=== PATIENT | female | born 1955 | race Caucasian/White ===

== ENCOUNTER 2016-12-09 14:48 | Inpatient (IN) | payer OTHER ==
[~2016-12-09] VITALS: Ht 152.4 cm; Wt 65.0 kg
[2016-12-10 10:16] VITALS: Ht 152.4 cm; Wt 65.0 kg
[2016-12-11] VITALS (20 sets, daily range): BP systolic 124–142; BP diastolic 50–78; PULSE 66–99; RESP 12–25
[2016-12-11] MEDS ORDERED: CEFAZOLIN 2 GM/50 ML (PMX) 50 ML IVPB SCH (06:00)
[2016-12-11] MEDS ORDERED: D5-NS + KCL 20 MEQ 1,000 ML IV SCH (06:00)
[2016-12-11] MEDS ORDERED: Metronidazole 500 MG in NS 100 ML IVPB SCH (06:00)
[2016-12-11] MEDS ORDERED: ROCURONIUM 50 MG INJ ONE ×2 (07:00→10:41)
[2016-12-11] MEDS ORDERED: EPHEDrine SULFATE 50 MG/5 ML SYG ONE (07:00)
[2016-12-11] MEDS ORDERED: METHYLENE BLUE 1% 10 ML INJ ONE (08:59)
[2016-12-11] MEDS ORDERED: VASOPRESSIN 20 UNITS INJ ONE (08:59)
[2016-12-11] MEDS ORDERED: THROMBIN 5000 UNIT VIAL ONE (08:59)
--- NOTE | 2016-12-11 09:57 | HPN ---
Date/Time of Note Date/Time of Note DATE: 12/11/16 TIME: 09:57 Interval H&P Admission Note Pt. seen H&P reviewed: No system changes MARTA BALDWIN MD Dec 11, 2016 09:57
--- NOTE | 2016-12-11 10:02 | HP ---
Date/Time of Note Date/Time of Note DATE: 12/11/16 TIME: 10:01 Assessment/Plan VTE Prophylaxis VTE Prophylaxis Intervention: SCD's Lines/Catheters [facility] Peripheral IV HPI/ROS Admit Date/Time Admit Date/Time Dec 11, 2016 at 07:44 Hx of Present Illness Juan Luis Baldwin M.D. [facility] History and Physical Examination Magaly Moreno Dec 08, 2016 Age:61 :1955 Physicians: Actuarial Science Professor Safety And Security Manager Oncologist Referring MD: History of the Present Illness: This is a 61 female with a grade 1 endometrial cancer recently diagnosed by d/c endometrial biopsy. Medical history/ROS: all other systems unremarkable. G 5 P 0 Ab 0 x 5 Surgical History: TL Medications: Flu yes, 07/2016, Pneumococcal no, declined Colonoscopy: never Allergies: 10/27/16 No Known Drug Intolerances Family History: Noncontributory Social History: Noncontributory Review of Systems: Negative except for above noted Physical Examination Vitals (12/08/2016): Weight 145.5, Height 58.5, BP 130/80, BMI 30.3. General: Alert. HEENT: Pupils are equal, round, reactive to light and accommodation. Neck: Supple with no masses of lymphadenopathy. Breast: Deferred due to recent examination and responsibility of primary care physician. Chest: Clear to auscultation and percussion with no rales, ronchi, or wheeze. Heart: Normal rhythm with no murmur. Abdominal exam: nontender, nondistended, no masses, no ascites. location: N/A Pelvic exam: Uterus enlarged and globular, no masses or cul-de-sac nodularity noted Rectal: confirmatory with pelvic exam. Neurological: Grossly intact Ext- NT no edema Assessment: endomtrial cancer stage to be determined Plan: TLH/BSO LND possible lapartotomy. All risks and benefits of this procedure have been discussed in detail with the patient, as well as alternative treatment strategies and their implications. The patient is aware that there is some possibility of a blood transfusion and its associated risks and benefits. She wishes to proceed and gives her informed consent. Juan Luis Baldwin M.D. Exam/Review of Systems Vital Signs Vitals Vital Signs Date Time Temp Pulse Resp B/P Pulse Ox O2 Delivery O2 Flow Rate FiO2 12/11/16 09:31 98.0 78 20 142/64 98 Medications Medications Current Medications Potassium Chloride/Dextrose/ Sod Cl 1,000 ml @ 100 mls/hr Q10H IV ; Start 12/11 at 06:00 Metronidazole 100 ml @ 100 mls/hr OC IVPB ; Start 12/11/16 at 06:00; Stop 12/11 at 16:00 Cefazolin Sodium/ Dextrose (Ancef 2 Gm/50 ml (Pmx)) 50 ml @ 100 mls/hr OC IVPB ; Start 12/11/16 at 06:00; Stop 12/11/16 at 16:00 JUAN LUIS BALDWIN MD Dec 11, 2016 10:02
[2016-12-11] MEDS ORDERED: FENTAnyl 50 MCG/ML VIAL ONE (10:21)
[2016-12-11] MEDS ORDERED: SUCCINYLCHOLINE CHLORIDE 100 MG/5 ML SYG IV ONE (10:41)
[2016-12-11] MEDS ORDERED: NEOSTIGMINE 3 MG/3 ML SYRINGE ONE (10:41)
[2016-12-11] MEDS ORDERED: PROPOFOL 20 ML ONE (10:41)
[2016-12-11] MEDS ORDERED: LIDOCAINE 2% (SDV) 5 ML INJ ONE (10:41)
[2016-12-11] MEDS ORDERED: GLYCOPYRROLATE 0.4 MG INJ ONE (10:41)
[2016-12-11] MEDS ORDERED: CEFAZOLIN 1 GM INJ ONE (10:42)
[2016-12-11] MEDS ORDERED: metroNIDAZOLE 500 MG/NS (PMX) 100 ML IVPB ONE (10:42)
[2016-12-11] MEDS ORDERED: ONDANSETRON 4 MG INJ IV PRN ×2 (11:00→20:30)
[2016-12-11] MEDS ORDERED: METOCLOPRAMIDE 10 MG INJ IV PRN (11:00)
[2016-12-11] MEDS ORDERED: MEPERIDINE 25 MG INJ IV PRN (11:00)
[2016-12-11] MEDS ORDERED: HYDROmorphONE (0.2 MG/ML) 10ML SYG IV PRN ×3 (11:00)
[2016-12-11] MEDS ORDERED: FENTAnyl 50 MCG/ML VIAL IV PRN ×2 (11:00)
[2016-12-11] MEDS ORDERED: DIPHENHYDRAMINE 50 MG INJ IV PRN (11:00)
[2016-12-11] MEDS ORDERED: LIDOCAINE 2%/EPI 30 ML INJ ONE (11:01)
[2016-12-11] MEDS ORDERED: PHENYLephrine (100 MCG/ML) 5ML SYG ONE (11:23)
[2016-12-11] MEDS ORDERED: CEFAZOLIN 3 GM in SOD CHLORIDE 0.9% 100 ML IVPB SCH (11:30)
[2016-12-11] MEDS ORDERED: morphine SULFATE/PF (10 MG/10 ML) INJ ONE (14:15)
[2016-12-11] MEDS: POTASSIUM CHLORIDE 20 MEQ in LACTATED RINGER'S 1,000 ML IV SCH (15:34)
[2016-12-11] MEDS ORDERED: traMADol 50 MG TAB PO PRN (16:30)
[2016-12-11] MEDS ORDERED: morphine 2 MG INJ IV PRN (16:30)
--- NOTE | 2016-12-11 17:47 | HP ---
DATE OF ADMISSION: 12/11/2016 CHIEF COMPLAINT AND HISTORY OF PRESENT ILLNESS: The patient is a 61-year-old female with history of endometrial cancer diagnosed by endometrial biopsy. The patient was seen by Dr. Yeager as an out patient and underwent total laparoscopic hysterectomy and bilateral salpingo-oophorectomy and lymph node dissection. The patient is being admitted for further care. The patient denies any chest pain . Patient does have some postoperative pain, no reported recent fever or chills. No known history of diabetes, hypertension, coronary artery disease or CVA. The patient did not have any recent infe ctions or antibiotic use. PAST SURGICAL HISTORY: Patient is status post tubal ligation. SOCIAL HISTORY: No smoking, no alcohol. FAMILY HISTORY: The patient's sister has breast cancer and daughter had vaginal cancer, details not known. MEDICATIONS PRIOR TO ADMISSION: None. PHYSICAL EXAMINATION: GENERAL: The patient is conscious, awake, alert. VITAL SIGNS: Temperature 98.3, pulse 88, respirations 17, blood pressure 130/63, O2 saturation 100% on room air. HEENT: Conjunctivae and lids are normal. Oropharynx clear. NECK: Supple. No mass or thyromegaly. LUNGS: Clear to auscultation. CARDIOVASCULAR: S1, S2 normal. No murmur. ABDOMEN: The patient is status post surgery. EXTREMITIES: No edema. Pedal pulses palpable. SKIN: Without acute rash. NEUROLOGIC: The patient is awake, alert with no gross focal deficit. Detailed neurological examina tion was deferred due to recent surgery. LABORATORY DATA: Preop chest x-ray was unremarkable. EKG showed normal sinus rhythm with no acute ST changes. Preop labs reveal normal coagulation profile. WBC 6.5, hemoglobin 14.5. Sodium 141, p otassium 4.6, BUN 17, creatinine 0.06, glucose 109. IMPRESSION: Endometrial cancer, status post total laparoscopic hysterectomy and bilateral salpingo- oophorectomy and lymph node dissection. PLAN: Patient admitted on medical floor. Patient will be started on clear liquid diet and will be given IV cefazolin and Flagyl as per protocol. Patient will be given IV fluid, IV Dilaudid for pain control and sequential compression devices for deep venous thrombosis prophylaxis. The patient is currently in the PACU and after transferring to the floor, she will be on Ultram p.o. and IV morphin e for pain control. Plan of care was discussed with the patient's family. We will continue to foll ow her from a medical standpoint. Dictated By: JOYCE KHAN/GUERLINE Conf#: [id number] DID#: [id number]
[2016-12-11] MEDS: CEFAZOLIN 3 GM in SOD CHLORIDE 0.9% 100 ML IVPB SCH (19:53)
--- NOTE | 2016-12-11 20:41 | OPR ---
Date/Time of Note Date/Time of Note DATE: 12/11/16 TIME: 20:40 Operative Report Free Text/Dictation OPERATIVE REPORT [facility] Name: Magaly Moreno Medical Date: 12/11/16 Preoperative Diagnosis: Endometrial cancer grade 1 Postoperative Diagnosis: Endometrial cancer with final pathology pending Procedures: 1- Total laparoscopic hysterectomy with bilateral salpingoophorectomy 2- Bilateral ureteral dissection with repositioning 3- Laparoscopic pelvic and aortic lymph node dissection 4- Retroperitoneal uterine artery ligation adjacent to hypogastric artery Surgeon: Dr. Yeager Hide Paster: Dr. Lindsey Izaguirre DYNAMICS AX SOLUTION ARCHITECT Anaesthesia: General with regional Indications for Procedure: This 61 year old patient had a grade 1 endometrial cancer without evidence of metastatic disease preoperatively and after discussions of options with risks and benefits it was determined that a laparoscopic hysterectomy with bilateral salpingoophorectomy and pelvic/aortic lymph node dissection would be completed for the purposes of treatment and possibly planning additional adjuvant therapy. The pelvic and LND was performed in lieu of final grading not being equivalent to preoperative D&C grade 18-25% of the time and frozen section not being more that 80% reliable in determining grade and depth of invasion; therefore complete staging is performed to determine postoperative management unless there is a significant contraindication. Intraoperative Findings and Summary of Procedure: After placing the Trocars and exploration we noted an enlarged globular uterus with some suggestion of fibroids with significant adhesions of the adnexia to the sidewalls. Name: Magaly Carreno The TLH/BSO was then performed without incident but required a ureteral dissection due to anatomic issues of the adnexia adherent to the sidewalls and uterine enlargement due to probable old fibroids vs invasion with retroperitoneal uterine artery ligation adjacent to hypogastric artery for required hemostasis, with the laparoscopic LND being subsequently performed with a finding of grossly negative nodes pathology pending. The patient will stay a minimum of one night to observe for recovery of from anesthesia and confirm stable hemoglobin and hematocrit with the necessity of confirmation of some GI recovery and probably need an addition night as well. Findings and Procedure: After being prepped and draped in the usual manner an EEA sizer and pneumo- occluder was inserted vaginally. A 5-millimeter trocar was then placed cephlad to the umbilicus without incident. Subsequently, we insufflated and placed two 12- millimeter trocars laterally and lysed extensive anterior abdominal omental adhesions that were lysed with the Omni and Thunderbeat after which it was possible to insert a 12-millimeter trocar suprapubically, as well as an additional 12-mm trocar well cephlad to the umbilicus. At this time multiple pelvic adhesions were lysed with sharp dissection and the Omni if not adjacent to serosa. Subsequently we explored and noted an enlarged irregular uterus with hypervascularity with adnexia adherent to the sidewalls due to apparent inflammation and old scar tissue. Initially the right round ligament was cauterized and transected with the Gyrus bipolar cutting forceps and the retroperitoneal space further opened parallel to the IP ligament an laterally with the same devise. The right ureter was identified and due to the aforementioned distortion from adherent adnexia was dissected laterally with the Omni and the endo-dissector. After lateralizing the ureter the uterine artery was identified and clipped adjacent to the hypogastric artery due to the uterine enlargement with anatomy precluding access to the lower uterine segment vessels with the ureter visualized and hypervascularity. Hence, a space was developed the broad ligament and the right IP ligament was cauterized and transected Name: Magaly [facility] with a Thunderbeat after which the uterus was retracted medially and the bladder flap was partly developed with the Gyrus bipolar cutting forceps and the Omni. We then used a 10-mm ratcheted endo-grasper placed through the 12-mm suprapubic trocar to manipulate the uterus and with the EEA sizer uterus was retracted and left round ligament was cauterized and transected with the Thunderbeat and the retroperitoneal space further opened parallel to the IP ligament an laterally with the same devise and Omni. The left ureter was identified and due to the aforementioned distortion was dissected laterally with the Omni and the endo-dissector as done contralaterally. After lateralizing the ureter the uterine artery was identified and clipped adjacent to the hypogastric artery due to the uterine enlargement with anatomy precluding access to the lower uterine segment vessels lateral to the ureter and hypervascularity. Hence, a space was developed in the broad ligament and the left IP ligament was cauterized and transected with a Thunderbeat after which the uterus was retracted medially, allowing development or the bladder flap uneventfully with a Thunderbeat and blunt dissection. Subsequently, the right uterine artery was transected with a Thunderbeat perpendicular to the distal lower uterine segment and the Cardinal ligament and utero-sacral ligament were both transected with an Omni and Thunderbeat parallel to the lower uterine segment and cervix. An identical series of steps were taken on the left side. The anterior and posterior colpotomies were accomplished with a Thunderbeat anteriorly and posteriorly, and continued around the sides as the specimen was removed through the vagina uneventfully. The vagina was closed with interrupted 0 Vicryl suture and continuous 2-0 v-lock suture. At this time the pelvic and aortic LND were completed after confirming hemostasis. Initially a fan retractor was used for exposure and secured to the Selvin arm and all lymph node tissue adjacent to the right external iliac artery and vein, hypogastric artery and vein, as well as obturator fossa were removed with sharp and blunt dissection, using the Thunderbeat or Gyrus bipolar Omni for hemostasis and lymphostasis. The frank tissue was grasped and subsequently placed under tractions with the Omni and the Thunderbeat then being used for the hemostasis and Name: [facility] lymphostasis in the process of removal. The dissection was continued to include frank tissue adjacent to the common iliac vessels. The obturator nerve was identified and all adjacent frank tissue removed with blunt dissection, with the Thunderbeat or Gyrus bipolar Omni used for lymphostasis and hemostasis as needed. The fan retractors were adjusted in that a suprapubically placed fan retracted the broad ligament and ureter with ileum while the right lateral trocar was used for a fan to retract the cecum and ascending colon allowing any frank tissue adjacent to the vena cava, as well as aorto-caval nodes to be removed using identical technique. [employer] Farm[employer] vessels were addressed with the Thunderbeat or Gyrus bipolar Omni. At this time we placed the fan retractors for contralateral exposure. Subsequently, all lymph node tissue adjacent to the left external iliac artery and vein, hypogastric artery and vein, as well as obturator fossa were removed with sharp and blunt dissection, the Thunderbeat or Gyrus bipolar Omni for hemostasis and lymphostasis, with a technique identical to the right side. The dissection was continued to include frank tissue adjacent to the common iliac vessels. Subsequently, the fan retractors were adjusted and any frank tissue adjacent to the aorta were dissected using similar technique. After irrigating and assuring hemostasis the 12 millimeter trocars were removed and the fascia was closed with 0-vicryl using an endo- close devise. The gas was removed and the skin of all sites then closed with subcutaneous 3-0 Vicryl suture for the 12-millimeter trocar sites and subcuticular 4-0 Monocryl suture. The EBL was 100cc and the patient tolerated the procedure well and left the OR in good condition. Marta Yeager M.D. MARTA YEAGER MD Dec 11, 2016 20:41
[2016-12-12] MEDS: POTASSIUM CHLORIDE 20 MEQ in LACTATED RINGER'S 1,000 ML IV SCH ×3 (00:47→15:28)
[2016-12-12] MEDS: CEFAZOLIN 3 GM in SOD CHLORIDE 0.9% 100 ML IVPB SCH ×2 (04:16→13:27)
[2016-12-12 06:01] LABS: ALBUMIN 3.3 g/dl (3.3-4.9); POTASSIUM 3.6 mmol/L (3.5-5.1)
[2016-12-12 06:03] LABS: CREATININE 0.6 mg/dl (0.44-1.00)
[2016-12-12 06:04] LABS: BILIRUBIN,INDIRECT 0.4 mg/dl (0-1.1); BILIRUBIN,TOTAL 0.4 mg/dl (0.2-1.3); TOTAL PROTEIN 6.6 g/dl (6.1-8.1)
[2016-12-12 06:05] LABS: CALCIUM 8.6 mg/dl (8.4-10.2)
[2016-12-12 06:06] LABS: INR 1.1; PROTIME 14.2 Sec (12.2-14.2); PT RATIO 1.1
[2016-12-12 07:29] VITALS: BP 111/53; RESP 16
--- NOTE | 2016-12-12 08:30 | CONS ---
Date/Time of Note Date/Time of Note DATE: 12/12/16 TIME: 08:27 Consultation Date/Type/Reason Admit Date/Time Dec 11, 2016 at 07:44 Initial Consult Date 12/12/16 Type of Consultation: Anesthesiology Reason for Consultation Epidural follow up 24 HR Interval Summary Free Text/Dictation Pt seen and examined at bedside POD#1 s/p Lap TAHBSO. Pt received an epidural for post op pain and duramorph injection. She states her pain is currently minimal and adequately controlled. No N/V/D/C/numbness. Will continue to follow. Constitutional: improved, no complaints Exam/Review of Systems Vital Signs Vitals Vital Signs Date Time Temp Pulse Resp B/P Pulse Ox O2 Delivery O2 Flow Rate FiO2 12/12/16 07:29 98.8 64 16 111/53 93 12/11/16 19:33 Room Air Intake and Output 12/11/16 12/11/16 12/12/16 14:59 22:59 06:59 Intake Total 2800 ml 1830 ml Output Total 225 ml 850 ml 600 ml Balance -225 ml 1950 ml 1230 ml Results Result Diagram: 12/12/16 0516 Results 24 hrs Laboratory Tests Test 12/12/16 05:16 Prothrombin Time 14.2 Prothrombin Time Ratio 1.1 INR International Normalized Ratio 1.10 Sodium Level 140 Potassium Level 3.6 Chloride Level 103 Carbon Dioxide Level 27 Anion Gap 14 Blood Urea Nitrogen 15 Creatinine 0.60 Glucose Level 108 Calcium Level 8.6 Total Bilirubin 0.4 Direct Bilirubin 0.00 Indirect Bilirubin 0.4 Aspartate Amino Transf (AST/SGOT) 20 Alanine Aminotransferase (ALT/SGPT) 26 Alkaline Phosphatase 79 Total Protein 6.6 Albumin 3.3 Globulin 3.30 H Albumin/Globulin Ratio 1.00 Medications Medications Current Medications Potassium Chloride 20 meq/ Lactated Ringer's 1,010 ml @ 100 mls/hr Q10H6M IV Last administered on 12/12/16 00:47; Admin Dose 100 MLS/HR; Start 12/11/16 at 12:30 Cefazolin Sodium/ Sodium Chloride (Ancef/NS) 100 ml @ 100 mls/hr Q8H IVPB Last administered on 12/12/16 04:16; Admin Dose 100 MLS/HR; Start 12/11/16 at 19:30; Stop 12/12/16 at 12:29 Tramadol HCl (Ultram) 50 mg Q6H PRN PO PAIN LEVEL 1-5; Start 12/11/16 at 16:30 Morphine Sulfate (morphine) 2 mg Q3H PRN IV PAIN LEVEL 6-10; Start 12/11/16 at 16:30 Ondansetron HCl (Zofran Inj) 4 mg Q6H PRN IV NAUSEA AND/OR VOMITING; Start at 20:30 MEGHANA PRESCOTT Dec 12, 2016 08:30
[2016-12-12 10:16] LABS: ADD SCAN DIFF NO
[2016-12-12 10:21] LABS: BASOPHILS % 0.2 % (0.0-2.0); EOSINOPHILS % 0.1 % (0.0-7.0); HEMOGLOBIN 11.8 g/dl (12.0-16.0); LYMPHOCYTES # 2.8 10^3/ul (0.8-2.9); LYMPHOCYTES % 21.8 % (15.0-51.0); MEAN CORPUSCULAR HEMOGLOBIN 32.2 pg (29.0-33.0); MEAN CORPUSCULAR HGB CONC 33.7 g/dl (32.0-37.0); MEAN CORPUSCULAR VOLUME 95.4 fl (82.0-101.0); MEAN PLATELET VOLUME 11.3 fl (7.4-10.4); MONOCYTE # 0.6 10^3/ul (0.3-0.9); MONOCYTES % 4.8 % (0.0-11.0); NEUTROPHIL # 9.5 10^3/ul (1.6-7.5); NEUTROPHILS % 72.9 % (39.0-77.0); PLATELET COUNT 198 10^3/UL (140-415); RED BLOOD COUNT 3.67 10^6/ul (4.20-5.40); WHITE BLOOD COUNT 13.1 10^3/ul (4.8-10.8)
--- NOTE | 2016-12-12 13:35 | PN ---
Date/Time of Note Date/Time of Note DATE: 12/12/16 TIME: 13:33 Assessment/Plan VTE Prophylaxis VTE Prophylaxis Intervention: SCD's Lines/Catheters IV Catheter Type (from Nrs): Saline Lock Urinary Cath still in place: Yes Reason Cath still needed: urinary retention Assessment/Plan Chief Complaint/Hosp Course endometrial cancer Problems: Assessment/Plan A- doing well P- advance diet, d/c Vaughn and anticipate d/c tomorrow Subjective 24 Hr Interval Summary Free Text/Dictation + flatus and iasi current diet. OOB Exam/Review of Systems Vital Signs Vitals Vital Signs Date Time Temp Pulse Resp B/P Pulse Ox O2 Delivery O2 Flow Rate FiO2 12/12/16 07:29 98.8 64 16 111/53 93 12/11/16 19:33 Room Air Intake and Output 12/11/16 12/11/16 12/12/16 15:00 23:00 07:00 Intake Total 2800 ml 1830 ml Output Total 225 ml 850 ml 600 ml Balance -225 ml 1950 ml 1230 ml Exam Respiratory: clear to auscultation, normal air movement Cardiovascular: nl pulses, regular rate and rhythm Gastrointestinal: non-tender, soft Extremities: normal pulses Results Result Diagram: 12/12/16 0516 12/12/16 0516 Results 24 hrs Laboratory Tests Test 12/12/16 05:16 White Blood Count 13.1 H Red Blood Count 3.67 L Hemoglobin 11.8 L Hematocrit 35.0 L Mean Corpuscular Volume 95.4 Mean Corpuscular Hemoglobin 32.2 Mean Corpuscular Hemoglobin Concent 33.7 Red Cell Distribution Width 13.0 Platelet Count 198 Mean Platelet Volume 11.3 H Neutrophils % 72.9 Lymphocytes % 21.8 Monocytes % 4.8 Eosinophils % 0.1 Basophils % 0.2 Nucleated Red Blood Cells % 0.0 Neutrophils # 9.5 H Lymphocytes # 2.8 Monocytes # 0.6 Eosinophils # 0.0 Basophils # 0.0 Nucleated Red Blood Cells # 0.0 Prothrombin Time 14.2 Prothrombin Time Ratio 1.1 INR International Normalized Ratio 1.10 Sodium Level 140 Potassium Level 3.6 Chloride Level 103 Carbon Dioxide Level 27 Anion Gap 14 Blood Urea Nitrogen 15 Creatinine 0.60 Glucose Level 108 Calcium Level 8.6 Total Bilirubin 0.4 Direct Bilirubin 0.00 Indirect Bilirubin 0.4 Aspartate Amino Transf (AST/SGOT) 20 Alanine Aminotransferase (ALT/SGPT) 26 Alkaline Phosphatase 79 Total Protein 6.6 Albumin 3.3 Globulin 3.30 H Albumin/Globulin Ratio 1.00 Medications Medications Current Medications Potassium Chloride/Lactated Ringer's (KCl/Lr) 1,010 ml @ 50 mls/hr [id number] IV Last administered on 12/12/16 00:47; Admin Dose 100 MLS/HR; Start 12/11/16 at 12:30 Tramadol HCl (Ultram) 50 mg Q6H PRN PO PAIN LEVEL 1-5 Last administered on 12/12 10:49; Admin Dose 50 MG; Start 12/11/16 at 16:30 Ondansetron HCl (Zofran Inj) 4 mg Q6H PRN IV NAUSEA AND/OR VOMITING; Start at 20:30 AMRTA BALDWIN MD Dec 12, 2016 13:35
[2016-12-12 20:03] VITALS: BP 124/62; RESP 18
[2016-12-13] MEDS: POTASSIUM CHLORIDE 20 MEQ in LACTATED RINGER'S 1,000 ML IV SCH (04:01)
[2016-12-13 06:03] LABS: ADD SCAN DIFF NO
[2016-12-13 06:15] LABS: BASOPHILS % 0.4 % (0.0-2.0); EOSINOPHILS % 0.1 % (0.0-7.0); HEMATOCRIT 35.4 % (37.0-47.0); HEMOGLOBIN 12.2 g/dl (12.0-16.0); LYMPHOCYTES # 2.5 10^3/ul (0.8-2.9); LYMPHOCYTES % 25.1 % (15.0-51.0); MEAN CORPUSCULAR HEMOGLOBIN 32.4 pg (29.0-33.0); MEAN CORPUSCULAR HGB CONC 34.5 g/dl (32.0-37.0); MEAN CORPUSCULAR VOLUME 94.1 fl (82.0-101.0); MEAN PLATELET VOLUME 10.6 fl (7.4-10.4); MONOCYTE # 0.5 10^3/ul (0.3-0.9); MONOCYTES % 5.2 % (0.0-11.0); NEUTROPHIL # 6.8 10^3/ul (1.6-7.5); NEUTROPHILS % 68.9 % (39.0-77.0); PLATELET COUNT 185 10^3/UL (140-415); RED BLOOD COUNT 3.76 10^6/ul (4.20-5.40); RED CELL DISTRIBUTION WIDTH 12.7 % (11.5-14.5); WHITE BLOOD COUNT 9.9 10^3/ul (4.8-10.8)
[2016-12-13 06:50] LABS: POTASSIUM 3.7 mmol/L (3.5-5.1)
[2016-12-13 06:53] LABS: CALCIUM 8.7 mg/dl (8.4-10.2); CREATININE 0.6 mg/dl (0.44-1.00)
[2016-12-13 07:31] VITALS: BP 139/66; RESP 20
--- NOTE | 2016-12-13 13:31 | PN ---
Date/Time of Note Date/Time of Note DATE: 12/13/16 TIME: 13:28 Assessment/Plan VTE Prophylaxis VTE Prophylaxis Intervention: SCD's Lines/Catheters IV Catheter Type (from [facility]): Saline Lock Urinary Cath still in place: No (DISCONTINUED BY DAY NURSE) Assessment/Plan Chief Complaint/Hosp Course endometrial cancer Problems: Assessment/Plan A- doing well P- discuss options with Dr. Covington Subjective 24 Hr Interval Summary Free Text/Dictation + flatus, voided and ambulated. Exam/Review of Systems Vital Signs Vitals Vital Signs Date Time Temp Pulse Resp B/P Pulse Ox O2 Delivery O2 Flow Rate FiO2 12/13/16 07:31 99.1 91 20 139/66 95 12/11/16 19:33 Room Air Intake and Output 12/12/16 12/12/16 12/13/16 15:00 23:00 07:00 Intake Total 100 ml 2385 ml 1405 ml Output Total 1000 ml 840 ml Balance 100 ml 1385 ml 565 ml Exam Cardiovascular: nl pulses, regular rate and rhythm Gastrointestinal: soft Extremities: normal pulses, No calf tenderness, No clubbing, No cyanosis, No edema, No other, No palpable cord, No pitting pedal edema, No tenderness Results Result Diagram: 12/13/16 0529 12/13/16 0524 Results 24 hrs Laboratory Tests Test 12/13/16 05:24 12/13/16 05:29 Sodium Level 138 Potassium Level 3.7 Chloride Level 103 Carbon Dioxide Level 27 Anion Gap 12 Blood Urea Nitrogen 10 Creatinine 0.60 Glucose Level 108 Calcium Level 8.7 White Blood Count 9.9 # Red Blood Count 3.76 L Hemoglobin 12.2 Hematocrit 35.4 L Mean Corpuscular Volume 94.1 Mean Corpuscular Hemoglobin 32.4 Mean Corpuscular Hemoglobin Concent 34.5 Red Cell Distribution Width 12.7 Platelet Count 185 Mean Platelet Volume 10.6 H Neutrophils % 68.9 Lymphocytes % 25.1 Monocytes % 5.2 Eosinophils % 0.1 Basophils % 0.4 Nucleated Red Blood Cells % 0.0 Neutrophils # 6.8 Lymphocytes # 2.5 Monocytes # 0.5 Eosinophils # 0.0 Basophils # 0.0 Nucleated Red Blood Cells # 0.0 Medications Medications Current Medications Potassium Chloride/Lactated Ringer's (KCl/Lr) 1,010 ml @ 50 mls/hr [id number] IV Last administered on 12/13/16 04:01; Admin Dose 50 MLS/HR; Start 12/11/16 at 12 :30 Tramadol HCl (Ultram) 50 mg Q6H PRN PO PAIN LEVEL 1-5 Last administered on 12/12 10:49; Admin Dose 50 MG; Start 12/11/16 at 16:30 Ondansetron HCl (Zofran Inj) 4 mg Q6H PRN IV NAUSEA AND/OR VOMITING; Start at 20:30 MARTA BALDWIN MD Dec 13, 2016 13:31
--- NOTE | 2016-12-13 14:16 | PN ---
Date/Time of Note Date/Time of Note DATE: 12/13/16 TIME: 14:12 Assessment/Plan VTE Prophylaxis VTE Prophylaxis Intervention: SCD's Lines/Catheters IV [facility]from [facility] Saline Lock Urinary Cath still in place: No (DISCONTINUED BY DAY NURSE) Assessment/Plan Chief Complaint/Hosp Course endometrial cancer Problems: Assessment/Plan A- some impvt P physical therapy assured patient and family if no path report will call Thursday Subjective 24 Hr Interval Summary Free Text/Dictation Feels better, slightly less pain and isai clear liq thus far but not OOB at all and no flatus. Discussed with son and pt and is mobile at home. Exam/Review of Systems Vital Signs Vitals Vital Signs Date Time Temp Pulse Resp B/P Pulse Ox O2 Delivery O2 Flow Rate FiO2 12/13/16 07:31 99.1 91 20 139/66 95 12/11/16 19:33 Room Air Intake and Output 12/12/16 12/12/16 12/13/16 15:00 23:00 07:00 Intake Total 100 ml 2385 ml 1405 ml Output Total 1000 ml 840 ml Balance 100 ml 1385 ml 565 ml Exam Abd soft less distended but some tenderness Ext; NT minimal edema Cardiovascular: nl pulses, regular rate and rhythm Gastrointestinal: soft Results Result Diagram: 12/13/16 0529 12/13/16 0524 Results 24 hrs Laboratory Tests Test 12/13/16 05:24 12/13/16 05:29 Sodium Level 138 Potassium Level 3.7 Chloride Level 103 Carbon Dioxide Level 27 Anion Gap 12 Blood Urea Nitrogen 10 Creatinine 0.60 Glucose Level 108 Calcium Level 8.7 White Blood Count 9.9 # Red Blood Count 3.76 L Hemoglobin 12.2 Hematocrit 35.4 L Mean Corpuscular Volume 94.1 Mean Corpuscular Hemoglobin 32.4 Mean Corpuscular Hemoglobin Concent 34.5 Red Cell Distribution Width 12.7 Platelet Count 185 Mean Platelet Volume 10.6 H Neutrophils % 68.9 Lymphocytes % 25.1 Monocytes % 5.2 Eosinophils % 0.1 Basophils % 0.4 Nucleated Red Blood Cells % 0.0 Neutrophils # 6.8 Lymphocytes # 2.5 Monocytes # 0.5 Eosinophils # 0.0 Basophils # 0.0 Nucleated Red Blood Cells # 0.0 Medications Medications Current Medications Potassium Chloride/Lactated Ringer's (KCl/Lr) 1,010 ml @ 50 mls/hr [id number] IV Last administered on 12/13/16 04:01; Admin Dose 50 MLS/HR; Start 12/11/16 at 12 :30 Tramadol HCl (Ultram) 50 mg Q6H PRN PO PAIN LEVEL 1-5 Last administered on 12/12 10:49; Admin Dose 50 MG; Start 12/11/16 at 16:30 Ondansetron HCl (Zofran Inj) 4 mg Q6H PRN IV NAUSEA AND/OR VOMITING; Start at 20:30 MARTA BALDWIN MD Dec 13, 2016 14:16
--- NOTE | 2016-12-17 11:50 | DS ---
Date/Time of Note Date/Time of Note DATE: 12/17/16 TIME: 11:49 Discharge Summary Admission/Discharge Info Admit Date/Time Dec 11, 2016 at 07:44 Discharge Date/Time Dec 13, 2016 at 15:30 Final Diagnosis 1) endometrial cancer Consults Gynecology Procedures 1) hysterectomy Hx of Present Illness Juan Luis Yeager M.D. [facility] History and Physical Examination Magaly Moreno Dec 08, 2016 Age:61 :1955 Physicians: [employer] Manager Oncologist Referring MD: History of the Present Illness: This is a 61 female with a grade 1 endometrial cancer recently diagnosed by d/c endometrial biopsy. Medical history/ROS: all other systems unremarkable. G 5 P 0 Ab 0 x 5 Surgical History: TL Medications: Flu yes, 07/2016, Pneumococcal no, declined Colonoscopy: never Allergies: 10/27/16 No Known Drug Intolerances Family History: Noncontributory Social History: Noncontributory Review of Systems: Negative except for above noted Physical Examination Vitals (12/08/2016): Weight 145.5, Height 58.5, BP 130/80, BMI 30.3. General: Alert. HEENT: Pupils are equal, round, reactive to light and accommodation. Neck: Supple with no masses of lymphadenopathy. Breast: Deferred due to recent examination and responsibility of primary care physician. Chest: Clear to auscultation and percussion with no rales, ronchi, or wheeze. Heart: Normal rhythm with no murmur. Abdominal exam: nontender, nondistended, no masses, no ascites. location: N/A Pelvic exam: Uterus enlarged and globular, no masses or cul-de-sac nodularity noted Rectal: confirmatory with pelvic exam. Neurological: Grossly intact Ext- NT no edema Assessment: endomtrial cancer stage to be determined Plan: TLH/BSO LND possible lapartotomy. All risks and benefits of this procedure have been discussed in detail with the patient, as well as alternative treatment strategies and their implications. The patient is aware that there is some possibility of a blood transfusion and its associated risks and benefits. She wishes to proceed and gives her informed consent. Juan Luis M. Eisenkop, M.D. Hospital Course Patient came in with endometrial cancer for hysterectomy and lymph node dissection. Patient underwent the procedure without difficulty. After recovery and clearance per gynecology, patient was discharged home. Home Meds No Active Prescriptions or Reported Meds MONET AYALA December 17, 2016 11:50
== END 2016-12-13 15:30 | disposition home or self-care (01) | DRG 741 ==
LOC: REC 14:48 → UNDOADMIN 14:48 → REC 12-11 07:44 → MS2 12-11 19:45
PROC: 0UTC4ZZ Resection of Cervix, Percutaneous Endoscopic Approach (ICD-10-PCS; 2016-12-11)
PROC: 0UT74ZZ Resection of Bilateral Fallopian Tubes, Percutaneous Endoscopic Approach (ICD-10-PCS; 2016-12-11)
PROC: 0UT24ZZ Resection of Bilateral Ovaries, Percutaneous Endoscopic Approach (ICD-10-PCS; 2016-12-11)
PROC: 0TS84ZZ Reposition Bilateral Ureters, Percutaneous Endoscopic Approach (ICD-10-PCS; 2016-12-11)
PROC: 07BC4ZX Excision of Pelvis Lymphatic, Percutaneous Endoscopic Approach, Diagnostic (ICD-10-PCS; 2016-12-11)
PROC: 07BD4ZX Excision of Aortic Lymphatic, Percutaneous Endoscopic Approach, Diagnostic (ICD-10-PCS; 2016-12-11)
PROC: 0UT94ZZ Resection of Uterus, Percutaneous Endoscopic Approach (ICD-10-PCS; principal; 2016-12-11 09:30)
DX: C54.1 Malignant neoplasm of endometrium (principal); N13.5 Crossing vessel and stricture of ureter without hydronephrosis
CPT/HCPCS: 80048; 80053; 85025; 85610; 86850; 86900; 86901; 86920; 87086; 88104; 88305; 88309; J0330; J0690; J1170; J2274; J2370; J2405; J2710; J3010; J3480; J7120